=== PATIENT | male | born 1970 | race Caucasian/White ===

== ENCOUNTER 2024-04-30 21:50 | Emergency (ER) | payer OTHER, SELFPAY ==
[2024-04-30 21:55] VITALS: BP 140/79
--- NOTE | 2024-04-30 22:41 | ED.SKININJ ---
HPI-Injury
General
Chief Complaint: Bite
Source: patient
Exam Limitations: none
Time Seen by Provider: 04/30/24 22:29
Nursing documentation reviewed up to this point in time: agreed with
History of Present Illness-Injury
Is this injury a work related problem?: No
Is pt an associate of [facility]?: No
Initial Injury comments:
51-year-old male presenting to the emergency department today with concerns of a dog bite to his left hand and left calf after he was breaking up his own dog when they had excited about fireworks. Claims the dogs are up-to-date with their rabies
vaccination otherwise are acting normally he had a tetanus shot within 5 years. Does have some pain to his left guevara but has been able to walk normally. Also has discomfort to his left middle finger and ring finger that were both bit as well.
Past History
Past History
ED Past Medical History: Other (Sciatic)
ED Past Surgical History: Appendectomy
Social History
Tobacco: Non-smoker
Alcohol: Occasional
Personal:
Living: with family
Review of Systems
Review of Systems
Allergies reviewed?: Yes
All Other Systems: ROS reviewed and negative except as documented in HPI and ROS
Phy Exam
Physical Exam
Physical Exam:
GENERAL: Alert , in no apparent distress
EYE: pupils equal and reactive
NECK: Supple, no significant adenopathy.
ENT: o/p clr, mmm.
CARDIAC: Regular rate and rhythm .
LUNGS: Clear breath sounds bilaterally, no acute respiratory distress, no wheezes/rales/rhonchi
ABDOMEN: Soft, without focal tenderness, no r/g, no cvat
NEUROLOGICAL: Alert and oriented, no focal neuro deficits
SKIN: Bite wound to the left guevara roughly 1.5 cm in length to the mid right-sided anterior guevara and also to the left lateral guevara region. No foreign body seen. Puncture bite wound to the left sided middle finger overlying the middle phalanx on the
ulnar lateral region. Additional bite wound to the ring finger on the ulnar aspect of the nailbed as well as to the proximal palmar aspect less than 1 cm in size warm and dry, skin intact.
MUSCULOSKELETAL: No edema, well perfused.
PSYCH: Normal and appropriate interaction.
Course
Orders/Labs/Results
Orders:
Orders
04/30/24 22:40
Amoxicillin 875 mg/Clav 125 mg [Augmentin 875 mg/125 mg] 1 tablet PO NOW STA
CR Hand - Left Min 3 Views Urgent
Comment:
Reason For Exam: dog bite 3rd/4th digit
Vital Signs
Initial and Last Documented VS:
Initial Vital Signs
Temp Pulse Resp BP Pulse Ox
98.2 F 80 16 140/79 99
04/30/24 21:55 04/30/24 21:55 04/30/24 21:55 04/30/24 21:55 04/30/24 21:55
Last Documented Vital Signs
Temp Pulse Resp BP Pulse Ox
98.2 F 80 16 140/79 99
04/30/24 21:55 04/30/24 21:55 04/30/24 21:55 04/30/24 21:55 04/30/24 21:55
MDM/Problems Addressed
MDM/Problems Addressed:
53-year-old male presenting to the emergency department with concerns of dog bite to his left hand and left guevara. Bite wounds were relatively small no active bleeding at time of arrival. He is up-to-date with his tetanus shot and the dog is
up-to-date with rabies vaccinations. He was started on Augmentin wounds were cleaned thoroughly and bandage placed. These were left open to heal from secondary intention to reduce risk of infection. Otherwise able for discharge return precautions
given.
*Critical Care Note
Total Time (30-74mins, 75-104mins- exclusive of procedures): Not Applicable
ED Attending Note
-
Portions of this chart may have been created with voice recognition software.� Occasional wrong word or��sound alike� substitutions may have occurred due to the inherent limitations of voice recognition software.
Discharge Plan
Departure
Patient Disposition: Home (Routine Discharge)
Date of Disposition: 04/30/24
Time of Disposition: 23:28
Patient with high blood pressure during this ER visit?: No
Condition: Good
Covid-19: Not Applicable
Discharge Problem:
Dog bite of left lower leg, Dog bite of left hand
Instructions: Animal Bites (DC), Wound Care (DC)
Prescriptions:
New
amoxicillin-pot clavulanate 875-125 mg tablet
1 tab PO BID 5 Days Qty: 10 0RF
No Action
celecoxib 200 MG capsule
200 mg PO DIRECTED
acetaminophen [Tylenol Extra Strength] 500 MG tablet
1,000 mg PO DIRECTED
aprepitant [Emend] 40 MG capsule
40 mg PO DIRECTED
amoxicillin-pot clavulanate 875-125 mg tablet
1 tab PO BID Qty: 14 0RF
Referrals:
Mark Anthony Kaiesr CRNP [Family Provider] -
Activity Restrictions/Additional Instructions:
You came to the emergency department today with concerns of a dog bite to your left guevara and left hand. This was cleaned thoroughly and wrapped. Please take Augmentin twice daily for the next 5 days to reduce risk of infection. Return to the
emergency department immediately for any signs of infection or additional concerns.
Interventions
Interventions:
*Risk Screen - Suicide Last Done: 04/30/24 21:55
*General Assessment Last Done: 04/30/24 21:55
*Neglect/Abuse Screening Last Done: 04/30/24 21:55
Discharge Date and Time
Print Language: [id number]
[2024-04-30] MEDS: AUGMENTIN 875 MG/125 MG 1 TABLET PO (22:45)
== END 2024-04-30 23:37 | disposition home or self-care (01) ==
LOC: EMR 21:50
PROVIDERS: EMERGENCY PHYSICIAN Emergency Medicine; FAMILY PHYSICIAN Nurse Practitioner Family
DX: S61.452A Open bite of left hand, initial encounter (principal); S81.852A Open bite, left lower leg, initial encounter; W54.0XXA Bitten by dog, initial encounter; Z90.49 Acquired absence of other specified parts of digestive tract
CPT/HCPCS: 99283; 73130